=== PATIENT | female | born 1935 | race Two or more races ===

== ENCOUNTER 2022-11-05 06:30 | Day surgery (SDC) | payer OTHER ==
[~2022-11-05] VITALS: Ht 154.9 cm; Wt 55.8 kg
[~2022-11-05 06:30] MED LIST: COZAAR100 MG PO; ESOMEPRAZOLE MA40 MG PO; LYRICA50 MG PO; METFORMIN HCL500 M3 PO; MIRTAZAPINE15 M1 PO; NORVASC2.5 MG PO; ROSUVASTATIN CA10 MG PO; SEROQUEL50 MG PO; SYNTHROID50 MCG PO
== END 2022-11-05 14:25 | disposition home or self-care (01) ==
LOC: CIR.AMB 06:30
PROVIDERS: ATTEND Anesthesiology Pain Medicine
DX: M47.816 Spondylosis without myelopathy or radiculopathy, lumbar region (principal); M99.73 Connective tissue and disc stenosis of intervertebral foramina of lumbar region; M54.16 Radiculopathy, lumbar region; I10 Essential (primary) hypertension; E78.00 Pure hypercholesterolemia, unspecified; E11.9 Type 2 diabetes mellitus without complications; E03.9 Hypothyroidism, unspecified